=== PATIENT | male | born 1990 | race Caucasian/White ===

== ENCOUNTER 2020-11-13 09:47 | Emergency (ER) | payer BC ==
--- NOTE | 2020-11-13 10:18 | RAD ---
XR Shoulder Rt 3 View STANDARD History: Fall with shoulder pain Comparison: Chest radiograph 2017 Findings: Mild elevation of the right distal clavicle with associated small volume soft tissue swelli ng. The ribs are intact. Glenohumeral alignment is normal. Impression: Mild elevation of the distal clavicle with widened acromioclavicular joint may reflect re cent acromioclavicular joint injury.
== END 2020-11-13 10:48 | disposition home or self-care (01) ==
LOC: MADERS 09:47
DX: S43.101A Unspecified dislocation of right acromioclavicular joint, initial encounter (principal); F17.210 Nicotine dependence, cigarettes, uncomplicated; W18.30XA Fall on same level, unspecified, initial encounter

== ENCOUNTER 2025-08-22 11:28 | Emergency (ER) | payer OTHER, SELFPAY ==
[2025-08-22] MEDS ORDERED: Boostrix 0.5 ML (Tdap) VIAL (>/=7 yrs of age) ONE (12:22)
[2025-08-22] MEDS ORDERED: Lidocaine 1% PF 5 ML VIAL ONE (12:22)
[2025-08-22] MEDS ORDERED: Ibuprofen 600 MG TAB ONE (13:02)
[2025-08-22] MEDS ORDERED: Acetaminophen 500 MG TAB ONE (13:02)
== END 2025-08-22 13:11 | disposition home or self-care (01) ==
LOC: MADERS 11:28
DX: S61.241A Puncture wound with foreign body of left index finger without damage to nail, initial encounter (principal); F17.210 Nicotine dependence, cigarettes, uncomplicated; Z23 Encounter for immunization; Z55.6 Problems related to health literacy; W45.0XXA Nail entering through skin, initial encounter
CPT/HCPCS: 64450; 90471; 90715